=== PATIENT | male | born 1995 | race Caucasian/White ===

== ENCOUNTER 2017-12-27 17:26 | Emergency (ER) | payer SELFPAY ==
[2017-12-27 17:28] VITALS: BP 132/78; PULSE 82; RESP 16; TEMP 36.7; O2SAT 98; BMI 24.3
--- NOTE | 2017-12-27 17:43 | CT_ITS ---
STUDY: CT ABDOMEN AND PELVIS WITH CONTRAST REASON FOR EXAM: Male, 22 years old. Right abdominal pain RADIATION DOSAGE (If Supplied By Facility): CTDIvol = ( 10.14 ) mGy, DLP = ( 494.64 ) mGycm TECHNIQUE: Transaxial images were obtained from the lower chest to the upper thighs with oral contrast. 100 ml of Isovue 300 contrast was administered. Sagittal and coronal images were reconstructed. Individualized dose optimization techniques were used for this CT. COMPARISON: None. FINDINGS: There is trace atelectasis in both lung bases. There is no pleural effusion. The heart is normal in size. The liver is unremarkable. The gallbladder and biliary system are unremarkable. The spleen is unremarkable. The pancreas is unremarkable. The adrenal glands are unremarkable. The right kidney is unremarkable. There is no dilatation of the collecting system in the right kidney. The left kidney is unremarkable. There is no dilatation of the collecting system in the left kidney. The stomach is unremarkable. The small bowel is unremarkable. The colon is unremarkable. The appendix measures about 8 mm in diameter. The aorta and branch vessels are unremarkable. 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 The retroperitoneum is unremarkable. There is no free fluid in the abdomen. The urinary bladder is unremarkable. The prostate is normal in appearance. The soft tissues of the abdominal wall are unremarkable. The visualized bones are unremarkable. CT/Abdomen/Pelvis WITH Contrast IMPRESSION: Findings are equivocal for appendicitis. The appendix only measures 8 mm in diameter but shows minimal enhancement. There is no significant inflammation around the appendix. There are otherwise no abnormalities seen in the abdomen or pelvis. There is no ascites. Electronically Signed: Jolly Nicolas MD at 20:31 EST Tel Direct: [phone], Service support ,
--- NOTE | 2017-12-27 17:45 | ED.DCSUM_ITS ---
- ER Visit Summary Date of Service: 12/27/17 Chief Complaint: Abdominal pain History of Present Illness: The patient is a 22 M who states that he was in his usual state of health when he went to bed last night. He woke with a generalized abdominal pain this morning. He states that that pain woke him up. He had diarrhea this morning followed by vomiting. Last episode of vomiting was at 3:00. He has been trying to drink fluids but has not had any solid foods. The generalized pain is now changed to a sharp right-sided abdominal pain. It is intermittent in nature. Not necessarily worse with walking or movement. No fevers. They wanted to go to urgent care but he was very pale and nauseated. Physical Examination: Afebrile vital signs are stable. Gen: Well-nourished well-developed Head: Normocephalic atraumatic Eyes: Perrl EOMI ENT: TMs clear no rhinorrhea moist mucous membranes Neck: Supple no lymphadenopathy no JVD nontender CVS: Regular rate rhythm no murmurs normal S1-S2 Respiratory: No distress clear to auscultation bilaterally chest nontender Abdomen: Soft mild tenderness to palpation in the right lower quadrant without guarding or rebound nondistended normal bowel sounds no masses Back: Nontender Extremity: Nontender no edema Skin: Patient appears pale no rash Neuro: alert orientated ?3 CN II-XII intact normal strength sensation reflexes gait cerebellar Psych: Normal affect normal mood Test Results: White count 9.2. Urinalysis normal. CMP and lipase negative. CT abdomen pelvis demonstrates a appendix at 8 mm. There is no inflammatory changes around the appendix. Emergency Department Course and Treatment: Patient received IV fluids, Zofran, and morphine. Patient otherwise feels improved. I do not believe the patient has appendicitis at the current time. Should his symptoms worsen he needs to return to the emergency department for evaluation. Otherwise we will treated conservatively at home with Zofran. Impression: 1. Acute abdominal pain 2. Gastroenteritis This note was generated with [employer] dictation software. It may contain incorrect words, spelling, and punctuation that were not noted in review of the chart prior to signing ED Disposition - Plan for ED Patient: Disposition: Home or Assisted Living Chief Complaint: Abd Pain Instructions: ED Gastroenteritis Viral Prescriptions: Ondansetron [Zofran Odt] 4 mg PO Q8H PRN PRN #10 tab PRN Reason: Nausea Referrals: [facility] Doctor,Out of [NON-STAFF] - As Needed
[2017-12-27] MEDS: Ondansetron 4 MG/2 ML Vial IV (18:09)
[2017-12-27] MEDS: 0.9% Normal Saline 1,000 ML 1000 ML IV (18:09)
[2017-12-27 18:15] LABS: Absolute Lymphocyte Count 0.78 X10^3/ul (0.83-4.51); Absolute Neutrophil Count 7.8 X10^3/uL (2.0-7.7); Basophil# 0.01 X10^3/uL; Basophil% 0.1 % (0-1); Eosinophil# 0.07 X10^3/uL; Eosinophils% 0.8 % (0-5); Hematocrit 46.5 % (40-54); Hemoglobin 16.2 g/dl (13.0-16.5); Lymphocyte # 0.78 X10^3/ul (4.0); Lymphocyte % 8.5 % (19-41); Mean Corp Hgb Conc 34.8 g/gl (32-36); Mean Corpuscular Hgb 30.4 pg (27.0-32.0); Mean Corpuscular Volume 87.2 fL (80-94); Mean Platelet Vol. 9.4 fl (6.2-12.0); Monocyte# 0.61 X10^3/uL; Monocyte% 6.6 % (0-10); Neutrophil # 7.75 X10^3/uL (2.7-7.7); Neutrophil % 83.9 % (47-70); POSITIVE COUNT NO; POSITIVE DIFFERENTIAL NO; POSITIVE MORPHOLOGY NO; Platelet Count 250 K/mm3 (150-450); RBC Distribution Width CV 12.4 % (11.6-14.6); RBC Distribution Width SD 39.6 fl (35.1-43.9); Red Blood Count 5.33 M/mm3 (4.6-6.2); White Blood Count 9.2 K/mm3 (4.4-11.0)
[2017-12-27 18:31] LABS: ALB/GLOB Ratio 1.4 RATIO (0.9-2.4); AST(SGOT) 23 U/L (15-37); Alanine Aminotransfer ALT/SGPT 32 U/L (16-61); Albumin, Serum 4.5 g/dL (3.2-5.0); Alkaline Phosphatase 67 U/L (45-117); Anion Gap 8 (5-15); BUN 20 mg/dL (7-18); BUN/Creat Ratio 20.8 RATIO (10-20); Calcium,Total 9.4 mg/dL (8.5-10.1); Chloride 104 mmol/L (98-107); Creatinine, Serum 0.96 mg/dL (0.70-1.30); EST Glomerular Filtration Rate 104 mL/min (>60); Est Glom Filt Rate - Afr Amer 126 mL/min (>60); Globulin 3.2 g/dL (2.2-4.2); Glucose 87 mg/dL (70-110); Lipase 91 U/L (73-393); Potassium 4.1 mmol/L (3.5-5.1); Protein, Total 7.7 g/dL (6.4-8.2); Sodium Level 139 mmol/L (136-145)
[2017-12-27 19:39] VITALS: BP 135/75; PULSE 71; RESP 16; O2SAT 97
[2017-12-27] MEDS: 0.9% Normal Saline 1,000 ML 125 ML IV (19:40)
[2017-12-27 19:43] LABS: Bacteria 0 SEEN /hpf (None Seen); Squamous Epithelial Cells - UA 0 SEEN /hpf (0-5); White Blood Cells 0 SEEN /hpf (0-5)
[2017-12-27 20:05] LABS: Color, Urine Yellow (Yellow); Glucose, Dipstick Normal (Normal); Ketone-Dipstick 50 mg/dl (Negative); Leukocyte Esterase-Dipstick Negative /ul (Negative); Nitrite-Dipstick Negative (Negative); Occult Blood-Urine Negative /ul (Negative); Protein-Dipstick Negative (Negative); Urine Bilirubin Dipstick Negative (Negative); Urine Clarity Clear (Clear); Urine Urobilinogen 1 mg/dl (Normal)
[2017-12-27 20:32] LABS: Mucous, Urine 1+ /hpf (<or=2+); Red Blood Cells-Urine 0-5 SEEN /hpf (0-5)
[2017-12-27] MEDS: Ondansetron ODT 4 MG Tablet PO (21:40)
[2017-12-27 21:41] VITALS: BP 134/63; PULSE 64; RESP 16; O2SAT 96
[2017-12-27 21:42] VITALS: BP 134/63; PULSE 64; RESP 16; O2SAT 96
== END 2017-12-27 21:52 | disposition home or self-care (01) ==
PROVIDERS: Emergency Provider Emergency Medicine
DX: K52.9 Noninfective gastroenteritis and colitis, unspecified (principal)
CPT/HCPCS: 74177; 80053; 81001; 83690; 85025; 99283; J7030; Q9967; J2405